=== PATIENT | female | born 1970 | race African-American/Black ===

== ENCOUNTER 2017-07-19 02:03 | Emergency (ER) | payer MEDICAID, OTHER ==
[~2017-07-19] VITALS: Ht 175.3 cm; Wt 163.3 kg
[~2017-07-19 02:03] MED LIST: CIPRO500 MG PO; NKM; PHENAZOPYRIDIN100 MG ORAL
[2017-07-19] MEDS ORDERED: Aspirin Baby 81mg ORAL ONE (02:30)
[2017-07-19] MEDS ORDERED: Albuterol ud Inhalation HHN ONE (02:30)
--- NOTE | 2017-07-19 02:33 | Emergency Room Report ---
History of Present Illness General Chief Complaint: Chest Pain Source: Patient Present Illness HPI Patient is a 46-year-old female presented after increased chest tightness. The patient gradual onset of symptoms. This is associated with some back pain. Patient reported having worsening pain with deep breath. The patient stated that this did not change with exertion. Patient reports having continuous pain since approximately 4 PM yesterday. Allergies: Coded Allergies: No Known Allergies (Unverified , 09/08/13) Patient History Past Medical History: see triage record Now: No Reviewed Nursing Documentation: PMH: Agreed, PSxH: Agreed Nursing Documentation-PMH Past Medical History: No Stated History Review of Systems All Other Systems: negative except mentioned in HPI Physical Exam Vital Signs Date Time Temp Pulse Resp B/P (MAP) Pulse Ox O2 Delivery O2 Flow Rate FiO2 07/19/17 02:08 98.1 85 17 138/85 99 Room Air Sp02 EP Interpretation: reviewed, normal General Appearance: normal inspection, well appearing, no apparent distress, alert, GCS 15 Head: atraumatic ENT: normal ENT inspection, hearing grossly normal, normal voice Neck: normal inspection, full range of motion, supple, no bony tend Respiratory: normal inspection, lungs clear, normal breath sounds, no respiratory distress, no retraction, no wheezing Cardiovascular #1: regular rate, rhythm, no edema Gastrointestinal: normal inspection, normal bowel sounds, non tender, soft, no guarding, no hernia Genitourinary: no CVA tenderness Musculoskeletal: normal inspection, back normal, normal range of motion Neurologic: normal inspection, alert, oriented x3, responsive, watch case polisher III-XII nml as tested, speech normal Psychiatric: normal inspection, judgement/insight normal, mood/affect normal Skin: normal inspection, normal color, no rash Medical Decision Making Diagnostic Impression: Primary Impression: Chest pain ER Course Patient presented for chest pain. Differential diagnosis included but was not limited to acute coronary syndrome, pulmonary embolism, pneumonia, aortic dissection, shingles, pneumothorax, aortic dissection, esophageal rupture, pericarditis. Because of complexity of patient's case laboratory testing and imaging studies were ordered. EKG interpreted by me showed normal sinus rhythm with a rate of [address] or T wave changes. Patient was noted to have some low-voltage which is likely due to patient's obesity. The rhythm strip interpreted by me showed normal sinus rhythm with a rate of [address] or T wave changes.Patient was noted to have negative troponin as well as a positive d- dimer. The patient was discussed with Dr. Jimenez who agreed to accept the patient in transfer. Labs Test 07/19/17 02:35 White Blood Count 10.1 K/UL (4.8-10.8) Red Blood Count 4.69 M/UL (4.20-5.40) Hemoglobin 13.3 G/DL (12.0-16.0) Hematocrit 42.1 % (37.0-47.0) Mean Corpuscular Volume 90 FL (80-99) Mean Corpuscular Hemoglobin 28.5 PG (27.0-31.0) Mean Corpuscular Hemoglobin Concent 31.7 G/DL (32.0-36.0) Red Cell Distribution Width 14.5 % (11.6-14.8) Platelet Count 284 K/UL (150-450) Mean Platelet Volume 6.7 FL (6.5-10.1) Neutrophils (%) (Auto) 58.0 % (45.0-75.0) Lymphocytes (%) (Auto) 33.5 % (20.0-45.0) Monocytes (%) (Auto) 5.5 % (1.0-10.0) Eosinophils (%) (Auto) 2.2 % (0.0-3.0) Basophils (%) (Auto) 0.9 % (0.0-2.0) Prothrombin Time 9.3 SEC (9.30-11.50) Prothromb Time International Ratio 0.9 (0.9-1.1) Activated Partial Thromboplast Time 28 SEC (23-33) D-Dimer 809 ng/mL (<500) Sodium Level 143 mEQ/L (135-145) Potassium Level 3.9 mEQ/L (3.4-4.9) Chloride Level 103 mEQ/L (98-107) Carbon Dioxide Level 28 mEQ/L (20-30) Anion Gap 12 (5-15) Blood Urea Nitrogen 14 mg/dL (7-23) Creatinine 0.9 mg/dL (0.5-0.9) Estimat Glomerular Filtration Rate > 60 mL/min (>60) Glucose Level 123 mg/dL (74-106) Calcium Level 9.3 mg/dL (8.6-10.2) Total Bilirubin 0.3 mg/dL (0.0-1.2) Aspartate Amino Transf (AST/SGOT) 18 U/L (5-40) Alanine Aminotransferase (ALT/SGPT) 20 U/L (3-33) Alkaline Phosphatase 101 U/L (35-104) Total Creatine Kinase 125 U/L (26-140) Creatine Kinase MB < 1.5 ng/mL (< 3.8) Creatine Kinase MB Relative Index 1.2 Troponin I < 0.30 ng/mL (<=0.30) Pro-B-Type Natriuretic Peptide 5 pg/mL (0-125) Total Protein 7.9 g/dL (6.6-8.7) Albumin 3.7 g/dL (3.5-5.2) Globulin 4.2 g/dL Albumin/Globulin Ratio 0.8 (1.0-2.7) Lipase 23 U/L (< 60) EKG Diagnostic Results Rate: normal Rhythm: NSR ST Segments: no acute changes Rhythm Strip Diag. Results EP Interpretation: yes Rhythm: NSR, no PVC's, no ectopy Last Vital Signs Date Time Temp Pulse Resp B/P (MAP) Pulse Ox O2 Delivery O2 Flow Rate FiO2 07/19/17 02:08 98.1 85 17 138/85 99 Room Air Status: improved Disposition: [facility] Condition: Stable Artem Márquez Jul 19, 2017 02:33
[2017-07-19 02:58] LABS: BASOPHILS % (AUTO) 0.9 % (0.0-2.0); EOSINOPHILS % (AUTO) 2.2 % (0.0-3.0); LYMPHOCYTES % (AUTO) 33.5 % (20.0-45.0); MEAN CORPUSCULAR HEMOGLOBIN 28.5 PG (27.0-31.0); MEAN CORPUSCULAR HGB CONC 31.7 G/DL (32.0-36.0); MEAN CORPUSCULAR VOLUME 90 FL (80-99); MEAN PLATELET VOLUME 6.7 FL (6.5-10.1); MONOCYTES % (AUTO) 5.5 % (1.0-10.0); PLATELET COUNT 284 K/UL (150-450); RED BLOOD COUNT 4.69 M/UL (4.20-5.40); RED CELL DISTRIBUTION WIDTH 14.5 % (11.6-14.8); WHITE BLOOD COUNT 10.1 K/UL (4.8-10.8)
[2017-07-19 03:05] LABS: INR 0.9 (0.9-1.1); PROTHROMBIN TIME 9.3 SEC (9.30-11.50)
[2017-07-19 03:09] VITALS: BP 120/45
[2017-07-19 03:13] LABS: TROPONIN I < 0.30 ng/mL (<=0.30)
[2017-07-19 03:17] LABS: ALANINE AMINOTRANSFERASE 20 U/L (3-33); ALBUMIN/GLOBULIN RATIO 0.8 (1.0-2.7); ANION GAP 12 (5-15); ASPARTATE AMINO TRANSFERASE 18 U/L (5-40); CALCIUM 9.3 mg/dL (8.6-10.2); CARBON DIOXIDE 28 mEQ/L (20-30); CHLORIDE 103 mEQ/L (98-107); CREATININE 0.9 mg/dL (0.5-0.9); GLOMERULAR FILTRATION RATE > 60 mL/min (>60); HEMOLYSIS 5; LIPASE 23 U/L (< 60); POTASSIUM 3.9 mEQ/L (3.4-4.9); SODIUM 143 mEQ/L (135-145); TOTAL PROTEIN 7.9 g/dL (6.6-8.7)
[2017-07-19 03:28] LABS: CKMB < 1.5 ng/mL (< 3.8)
[2017-07-19] MEDS ORDERED: Ketorolac 30mg Inj IV ONE (04:15)
[2017-07-19 06:00] VITALS: BP 121/55
[2017-07-19 07:10] VITALS: BP 108/40
[2017-07-19 07:43] LABS: APPEARANCE,URINE CLOUDY; KETONES,URINE NEGATIVE (NEGATIVE); LEUKOCYTE ESTERASE ,URINE 2+ (NEGATIVE); NITRITE,URINE NEGATIVE (NEGATIVE); PH,URINE 5 (4.5-8.0); PROTEIN,URINE 1+ (NEGATIVE); UROBILINOGEN,URINE NORMAL MG/DL (0.0-1.0)
[2017-07-19 07:57] LABS: BACTERIA,URINE MODERATE /HPF; MUCUS,URINE FEW /LPF (NONE/OCC); SQUAMOUS EPITHELIAL CELL,UR MODERATE /LPF (NONE/OCC); WBC,URINE 20-30 /HPF (0 - 2)
[2017-07-19 08:51] VITALS: BP 102/56
[2017-07-19 09:09] VITALS: BP 108/66
--- NOTE | 2017-07-19 09:45 | Diagnostic Imaging Report ---
Indication: Dyspnea Comparison: 11/02/2007 A single view chest radiograph was obtained. Findings: No definite infiltrate or pulmonary vascular congestion identified. The heart is enlarged. The bones are unremarkable. Impression: No acute disease
--- NOTE | 2017-07-20 19:43 | Cardiology Report ---
APPROVED REPORT EKG Measurement Heart [id number] QT0T0 QTc0 No QRS complexes found, no ECG analysis possible
== END 2017-07-19 09:11 | disposition short-term general hospital (02) ==
LOC: EMR 02:25 → EDBEDREQ 05:25 → EMR 09:11
DX: R07.9 Chest pain, unspecified (principal)
CPT/HCPCS: 36415; 71010; 80053; 81003; 82550; 82553; 83690; 83880; 84484; 85025; 85379; 85610; 85730; 87086; 93005; 94640; 94664; 96374; 99285; J1885; J2405

== ENCOUNTER 2017-08-28 22:08 | Emergency (ER) | payer OTHER ==
[~2017-08-28] VITALS: Ht 175.3 cm; Wt 172.4 kg
[2017-08-28 22:25] VITALS: BP 114/81
[2017-08-28] MEDS ORDERED: ROBAXIN-750750 MG PO (23:14)
[2017-08-28] MEDS ORDERED: IBUPROFEN600 MG ORAL (23:14)
[2017-08-28 23:24] VITALS: BP 114/81
--- NOTE | 2017-08-28 23:32 | Emergency Room Report ---
History of Present Illness General Chief Complaint: Back Pain-No Injury Source: Patient Present Illness HPI 46-year-old female no significant past medical history p/w back pain for 2 days. Patient states pain started when spontaneously yesterday. Pain is localized to her right lower back, sharp in nature, non radiating. Movement worsens pain. There are no alleviating factors. Patient states that she got a massage with [place] bal[place] yesterday which helped her pain. Did not take any medication for pain This is the first occurrence of back pain. Denies trauma. Denies lower extremity weakness/numbness, no bowel/bladder retention or incontinence, saddle anesthesia. Denies fever, chills, abdominal pain, n/v, dysuria/hematuria. No history of IVDA Allergies: Coded Allergies: No Known Allergies (Unverified , 09/08/13) Patient History Past Medical History: see triage record Past Surgical History: none Pertinent Family History: none Last Menstrual Period: last week Reviewed Nursing Documentation: PMH: Agreed, PSxH: Agreed Nursing Documentation-PMH Past Medical History: No Stated History Review of Systems All Other Systems: negative except mentioned in HPI Physical Exam Vital Signs Date Time Temp Pulse Resp B/P (MAP) Pulse Ox O2 Delivery O2 Flow Rate FiO2 08/28/17 22:13 98.2 89 16 114/81 96 Room Air Sp02 EP Interpretation: reviewed, normal General Appearance: normal inspection, well appearing, no apparent distress, alert, GCS 15, non-toxic Head: normocephalic, atraumatic Eyes: bilateral eye normal inspection, bilateral eye PERRL, bilateral eye EOMI ENT: normal ENT inspection, normal pharynx, normal voice, moist mucus membranes Neck: normal inspection, full range of motion, supple Respiratory: normal inspection, lungs clear, normal breath sounds, no respiratory distress, no retraction, no wheezing, speaking full sentences, chest symmetrical Cardiovascular #1: normal inspection, regular rate, rhythm, no edema, normal capillary refill Cardiovascular #2: 2+ radial (R), 2+ radial (L) Gastrointestinal: normal inspection, non tender, soft, non-distended, no guarding Musculoskeletal: other - Lower lumbar right-sided paraspinal tenderness, full range of motion all extremities Neurologic: normal inspection, alert, oriented x3, responsive, motor strength/ tone normal, sensory intact, normal gait, speech normal, other - Motor strength intact bilateral lower extremities 5 out of 5 Psychiatric: normal inspection, judgement/insight normal, memory normal Skin: normal inspection, normal color, no rash, warm/dry, well hydrated, normal turgor Medical Decision Making Diagnostic Impression: Primary Impression: Back pain ER Course 38-year-old female p/w back pain 2 days DDX: likely musculoskeletal back pain vs. muscular strain vs. sciatica Lumbar fracture is unlikely given patients age, no midline tenderness, no history of trauma, and that patient is ambulatory. Therefore, at this time no imaging is indicated Serious diagnoses such as cord compression, epidural abscess is unlikely in this patient given the clinical scenario and abscess of neurological symptoms or findings. Patient appears nontoxic. Plan: motrin, robaxin ER course: Patient has remained nontoxic appearing and ambulatory in the ED. Pain improved w/ medications Disposition: Patient will be discharged to home with prescription of motrin and robaxin. Patient cautioned of the effects of robaxin including possible impairment of physical or mental abilities. Patient was instructed to refrain from operating machinery or driving. Patient is also cautioned on the GI effects of motrin and to take sparingly. Patient verbalized understanding. Strict precautions discussed with patient on when to emergently return to the ED which includes severe/worsening back pain, leg weakness/numbness, urinary retention/incontinence, fever or chills, which may indicate severe illness. Patient is to follow up with their PMD within 5 days. Patient agrees with plan. Please note that this Emergency Department Report was dictated using [email or web address] management facilitator technology software, occasionally this can lead to erroneous entry secondary to interpretation by the dictation equipment. Last Vital Signs Date Time Temp Pulse Resp B/P (MAP) Pulse Ox O2 Delivery O2 Flow Rate FiO2 08/28/17 22:25 98.2 89 16 114/81 96 Room Air Disposition: HOME, SELF-CARE Condition: Improved Scripts Methocarbamol* (ROBAXIN-750*) 750 Mg Tablet 750 MG PO QID, #28 TAB 0 Refills Prov: Retino,Clairose M.D. 08/28/17 Ibuprofen* (MOTRIN*) 600 Mg Tablet 600 MG ORAL Q8H Y for For Pain, #30 TAB 0 Refills Prov: Retino,Clairose M.D. 08/28/17 Referrals: [facility]ERR[facility] (PCP) Patient Instructions: Back Pain, Adult Additional Instructions: Please followup with your primary care doctor in one week Rk Hudson M.D. Aug 28, 2017 23:32
== END 2017-08-28 23:24 | disposition home or self-care (01) ==
LOC: EMR 22:41
DX: M54.5 Low back pain (principal)
CPT/HCPCS: 99284

== ENCOUNTER 2019-02-11 08:36 | Emergency (ER) | payer MEDICAID, OTHER ==
[~2019-02-11] VITALS: Ht 172.7 cm; Wt 150.6 kg
[~2019-02-11 08:36] MED LIST changes: +IBUPROFEN600 MG ORAL; +ROBAXIN-750750 MG PO
[2019-02-11 08:53] VITALS: BP 121/65
--- NOTE | 2019-02-11 08:54 | NUR ---
ED Nurse Note: ambulated in to ER from home due to lower abdominal cramping pain 9 with nausea x3 days. Denies fever and chills and vomitting. Per pt, she had diarrhea first two days. Last meal was last night.
[2019-02-11] MEDS ORDERED: Ketorolac 30mg Inj IM ONE (09:00)
--- NOTE | 2019-02-11 09:03 | Emergency Room Report ---
History of Present Illness General Chief Complaint: Abdominal Pain Source: Patient Present Illness HPI Patient present with reports of lower suprapubic discomfort ongoing for the past one day patient reports that she also had started having diarrhea Denies any vomiting had some minimal nausea which has improved Denies any decreased appetite denies any chest pain or short of breath denies any fevers or chills denies any flank pain denies any recent trauma Patient reports that she has gone through menopause about a year ago Denies any vaginal discharge Allergies: Coded Allergies: No Known Allergies (Unverified , 09/08/13) Patient History Past Medical History: see triage record Pertinent Family History: none Last Menstrual Period: menopause Reviewed Nursing Documentation: PMH: Agreed; PSxH: Agreed Nursing Documentation-PMH Past Medical History: No Stated History Review of Systems All Other Systems: negative except mentioned in HPI Physical Exam Vital Signs Date Time Temp Pulse Resp B/P (MAP) Pulse Ox O2 Delivery O2 Flow Rate FiO2 02/11/19 08:44 98.4 99 16 123/66 99 Room Air Sp02 EP Interpretation: reviewed, normal General Appearance: well appearing, no apparent distress Head: normocephalic, atraumatic Eyes: bilateral eye PERRL, bilateral eye EOMI ENT: hearing grossly normal, normal pharynx, TMs + canals normal, uvula midline Neck: full range of motion, supple, no meningismus, no bony tend Respiratory: lungs clear, normal breath sounds, no rhonchi, no respiratory distress, no retraction, no accessory muscle use Cardiovascular #1: normal peripheral pulses, regular rate, rhythm, no edema, no gallop, no JVD, no murmur Gastrointestinal: normal bowel sounds, non tender - However subjectively points to the suprapubic area for some discomfort, soft, no mass, no organomegaly, non-distended, no guarding, no hernia, no pulsatile mass, no rebound Genitourinary: no CVA tenderness Musculoskeletal: normal inspection Neurologic: oriented x3, responsive, deputy prosecuting attorney III-XII nml as tested, motor strength/ tone normal, sensory intact Psychiatric: mood/affect normal Skin: normal color, no rash, warm/dry, palpation normal Lymphatic: normal inspection, no adenopathy Medical Decision Making Diagnostic Impression: Primary Impression: UTI (urinary tract infection) Additional Impression: Uterine fibroid ER Course With the patient's history and examination, multiple differentials considered, including but not limited to , ectopic , ovarian torsion, gastritis, cholecystitis, pancreatitis, appendicitis Patient's urine sample does show infectious pathology ultrasound reveals uterine fibroid Patient remains otherwise hemodynamically stable and has a benign medical evaluation and appropriate for close outpatient follow-up Labs Test 02/11/19 09:00 Urine Color Yellow Urine Appearance Slightly cloudy Urine pH 5 (4.5-8.0) Urine Specific [place] 1.020 (1.005-1.035) Urine Protein 1+ (NEGATIVE) Urine Glucose (UA) Negative (NEGATIVE) Urine Ketones Negative (NEGATIVE) Urine Blood 1+ (NEGATIVE) Urine Nitrite Negative (NEGATIVE) Urine Bilirubin Negative (NEGATIVE) Urine Urobilinogen 1 MG/DL (0.0-1.0) Urine Leukocyte Esterase 1+ (NEGATIVE) Urine RBC 2-4 /HPF (0 - 2) Urine WBC 10-15 /HPF (0 - 2) Urine Squamous Epithelial Cells Many /LPF (NONE/OCC) Urine Bacteria Few /HPF (NONE) Urine HCG, Qualitative Negative (NEGATIVE) CT/MRI/US Diagnostic Results CT/MRI/US Diagnostic Results : Impression pelvic us:Impression: Somewhat limited exam, as described Evidence of uterine fibroids No definite adnexal mass. Note, however, inability to visualize the left ovary Last Vital Signs Date Time Temp Pulse Resp B/P (MAP) Pulse Ox O2 Delivery O2 Flow Rate FiO2 02/11/19 08:53 99 16 Room Air 02/11/19 08:53 98.4 121/65 99 Status: improved Disposition: HOME, SELF-CARE Condition: Improved Scripts Nitrofurantoin Monohyd/M-Cryst* (MACROBID 100 MG*) 100 Mg Capsule 100 MG ORAL EVERY 12 HOURS for 5 Days, CAP Prov: Britney Ulloa DO 02/11/19 Ibuprofen* (MOTRIN*) 600 Mg Tablet 600 MG ORAL Q8H PRN for For Pain, #20 TAB 0 Refills Prov: Britney Ulloa DO 02/11/19 Additional Instructions: Patient is provided with the discharge instructions notified to follow up with primary doctor in the next 2-3 days otherwise return to the er with any worsening symptoms. Please note that this report is being documented using [employer] technology. This can lead to erroneous entry secondary to incorrect interpretation by the dictating instrument. Britney Ulloa DO Feb 11, 2019 09:03
--- NOTE | 2019-02-11 09:05 | NUR ---
ED Nurse Note: urine sent down to the lab
[2019-02-11 09:52] LABS: APPEARANCE,URINE SLIGHTLY CLOUDY; BILIRUBIN, URINE NEGATIVE (NEGATIVE); GLUCOSE, URINE (UA) NEGATIVE (NEGATIVE); KETONES,URINE NEGATIVE (NEGATIVE); LEUKOCYTE ESTERASE ,URINE 1+ (NEGATIVE); NITRITE,URINE NEGATIVE (NEGATIVE); PH,URINE 5 (4.5-8.0); PROTEIN,URINE 1+ (NEGATIVE); UROBILINOGEN,URINE 1 MG/DL (0.0-1.0)
[2019-02-11 09:54] LABS: COLOR,URINE YELLOW
--- NOTE | 2019-02-11 10:13 | NUR ---
ED Nurse Note: pt went down for US
--- NOTE | 2019-02-11 11:04 | NUR ---
ED Nurse Note: pt back from US. Remains stable.
[2019-02-11] MEDS ORDERED: IBUPROFEN600 MG ORAL (11:39)
[2019-02-11] MEDS ORDERED: NITROFURANTOIN100 M2 ORAL (11:39)
[2019-02-11 11:45] VITALS: BP 125/64
[2019-02-11 11:46] VITALS: BP 125/69
--- NOTE | 2019-02-11 11:46 | NUR ---
ED Nurse Note: Pt cleared by health care Provider for discharge. DC instructions/prescription was given and explained to pt and verbalized understanding of teachings. All medical deviecs such as ID band removed. Pt is AAO x4, ambulatory and left with all personal belongings.
--- NOTE | 2019-02-11 12:04 | Diagnostic Imaging Report ---
Indication: Pelvic pain, known patient Technique: Transabdominal and transvaginal images. Doppler interrogation of the ovaries Comparison: none Findings: Uterus is retroflexed, measures 11.2 cm in length by 3.9 cm AP. Endometrium is not well demonstrated, probably not thickened, measures 2 mm thick. Multiple isoechoic to hypoechoic structures are seen within the myometrium, measuring up to 3.8 cm in diameter. Myometrial calcifications are also demonstrated. The uterus is not well-visualized on the transvaginal images due to its size. The left ovary measures 2.6 cm in length, demonstrates grossly normal flow. The right ovary could not be demonstrated. No free cul-de-sac fluid. No definite adnexal mass Impression: Somewhat limited exam, as described Evidence of uterine fibroids No definite adnexal mass. Note, however, inability to visualize the left ovary
== END 2019-02-11 11:46 | disposition home or self-care (01) ==
LOC: EMR 09:15
DX: N39.0 Urinary tract infection, site not specified (principal); D25.9 Leiomyoma of uterus, unspecified
CPT/HCPCS: 76830; 76856; 81003; 81025; 87086; 96372; 99284; J1885

== ENCOUNTER 2019-06-15 11:14 | Emergency (ER) | payer MEDICAID ==
[~2019-06-15] VITALS: Ht 175.3 cm; Wt 142.4 kg
[~2019-06-15 11:14] MED LIST changes: +NITROFURANTOIN100 M2 ORAL
[2019-06-15 11:20] VITALS: BP 133/87
--- NOTE | 2019-06-15 11:25 | NUR ---
ED Nurse Note: Patient walked into ED c/o sharp pain on the back of her head, mainly on the right posterior side for 2 days, reports 4/10 pain at this time. patient denies any injury.
--- NOTE | 2019-06-15 12:19 | NUR ---
ED Nurse Note: patient went to CT
--- NOTE | 2019-06-15 12:34 | Diagnostic Imaging Report ---
Indication: Headache Technique: Contiguous 5 mm thick transaxial imaging of the head obtained in a Siemens Sensation [address] scanner. Soft tissue and bone windows generated. Automatic Exposure Control was utilized. Total Dose length Product (DLP): 1337.[address] Dose Index Volume (CTDIvol): 70.38 mGy Comparison: none Findings: The size and configuration of the cortical sulci, basal cisterns, and ventricles are within normal limits for age. There is no mass effect, midline shift, or edema identified. There is no evidence of acute hemorrhage or abnormal intra-axial or extra-axial fluid collections. The bones and soft tissues are unremarkable. Impression: No mass effect, edema or acute bleed. The CT scanner at [facility] is accredited by the [employer] and the scans are performed using dose optimization techniques as appropriate to a performed exam including Automatic Exposure control.
[2019-06-15] MEDS ORDERED: Cyclobenzaprine 10mg Tab ORAL ONE (13:15)
[2019-06-15] MEDS ORDERED: CYCLOBENZAPRINE10 MG ORAL (13:46)
[2019-06-15 14:00] VITALS: BP 133/87
--- NOTE | 2019-06-15 14:00 | NUR ---
ER DISCHARGE NOTE: Patient is cleared to be discharged per ERMD DR RODRIGUEZ, pt is aox4, on room air, with stable vital signs. pt was given dc and prescription instructions, pt was able to verbalize understanding, pt id band removed without complications. pt is able to ambulate with steady gait. pt took all belongings.
--- NOTE | 2019-06-21 22:00 | Emergency Room Report ---
History of Present Illness General Chief Complaint: Pain Source: Patient Present Illness Allergies: Coded Allergies: No Known Allergies (Unverified , 09/08/13) Patient History Last Menstrual Period: menopause Reviewed Nursing Documentation: PMH: Agreed; PSxH: Agreed Nursing Documentation-PMH Past Medical History: No Stated History Review of Systems All Other Systems: negative except mentioned in HPI Medical Decision Making Diagnostic Impression: Primary Impression: Muscle spasms of neck Disposition: HOME, SELF-CARE Condition: Stable Scripts Cyclobenzaprine Hcl* (FLEXERIL*) 10 Mg Tablet 10 MG ORAL THREE TIMES A DAY, #20 TAB Prov: Artem Márquez MD 06/15/19 Patient Instructions: Muscle Cramps and Spasms Artem Márquez MD Jun 21, 2019 22:00
== END 2019-06-15 14:00 | disposition home or self-care (01) ==
LOC: EMR 12:01
DX: M62.838 Other muscle spasm (principal)
CPT/HCPCS: 70450; 99284